=== PATIENT | male | born 1975 | race African-American/Black ===

== ENCOUNTER 2020-01-14 02:37 | Emergency (ER) | payer OTHER ==
[~2020-01-14] VITALS: Ht 180.3 cm; Wt 86.2 kg
--- NOTE | 2020-01-14 02:59 | NUR ---
PT AAOX4. AMBULATORY WITH STEADY GAIT. BIBSELF C/O SI TO JUMP INFRONT OF TRAFFIC, -HI. PLACED IN BED 14 ON MONITOR AND PULSE OX. BELONGINGS PALCED IN LOCKER. SITTER AT BEDSIDE. NO ACUTE DISTRESS NOTED.
[2020-01-14 04:16] LABS: APPEARANCE,URINE CLEAR (CLEAR); BILIRUBIN,URINE NEGATIVE (NEGATIVE); BLOOD, URINE NEGATIVE Ery/uL (NEGATIVE); COLOR,URINE YELLOW (YELLOW); KETONES,URINE NEGATIVE (NEGATIVE); LEUKOCYTE ESTERASE ,URINE NEGATIVE (NEGATIVE); NITRITE, URINE NEGATIVE (NEGATIVE); PH,URINE 6.5 (5.0-8.0); PROTEIN,URINE NEGATIVE (NEGATIVE); UGLUCOSE NEGATIVE (NEGATIVE)
[2020-01-14 04:25] LABS: BACTERIA,URINE Few /HPF (None Seen); SQUAMOUS EPITHELIAL CELL,UR Rare /HPF (None Seen)
[2020-01-14 04:42] LABS: BASOPHILS # (AUTO) 0.1 /CMM (0.0-0.2); BASOPHILS % (AUTO) 0.9 % (0.0-2.0); EOSINOPHILS % (AUTO) 1.8 % (0.0-6.0); HEMATOCRIT 46 % (39-51); HEMOGLOBIN 14.4 g/dL (13.5-17.5); LYMPHOCYTES # (AUTO) 2.2 /CMM (0.8-4.8); LYMPHOCYTES % (AUTO) 22.5 % (20.0-44.0); MEAN CORPUSCULAR HGB CONC 32 g/dl (31.0-36.0); MEAN CORPUSCULAR VOLUME 95 fL (80-96); MONOCYTES # (AUTO) 0.7 /CMM (0.1-1.30); MONOCYTES % (AUTO) 7.2 % (2.0-12.0); NEUTROPHILS # (AUTO) 6.6 /CMM (1.8-8.9); NEUTROPHILS % (AUTO) 67.6 % (43.0-81.0); PLATELET COUNT (AUTO) 263 /CMM (150-450); RED BLOOD CELL COUNT(AUTO) 4.79 MIL/uL (4.5-6.0); WHITE BLOOD COUNT (AUTO) 9.8 K/uL (4.3-11.0)
[2020-01-14 05:06] LABS: ALANINE AMINOTRANSFERASE 32 U/L (12-78); ALBUMIN 4.2 g/dL (3.4-5.0); ALCOHOL, BLOOD < 3 mg/dL (0-0); ALKALINE PHOSPHATASE 64 U/L (46-116); ASPARTATE AMINOTRANSFERASE 24 U/L (15-37); BILIRUBIN,DIRECT 0.2 mg/dL (0.0-0.2); BILIRUBIN,TOTAL 0.9 mg/dL (0.2-1.0); CALCIUM, SERUM 9.7 mg/dL (8.5-10.1); CARBON DIOXIDE 31 mmol/L (21-32); CHLORIDE 104 mmol/L (98-107); CREATININE 1.3 mg/dL (0.6-1.3); GLUCOSE 86 mg/dL (74-106); POTASSIUM 4.5 mmol/L (3.5-5.1); SODIUM SERUM 139 mmol/L (136-145); TOTAL PROTEIN, SERUM 7.8 g/dL (6.4-8.2); UREA NITROGEN, BLOOD 24 mg/dL (7-18)
[2020-01-14 05:09] LABS: ACETAMINOPHEN 0 ug/ml (10-30); SALICYLATE 1.3 mg/dL (2.8-20.0)
--- NOTE | 2020-01-14 05:34 | NUR ---
CLINICAL INFORMATION FAXED TO [facility]
--- NOTE | 2020-01-14 07:05 | NUR ---
PT RESTING COMFORTABLY IN BED. VITAL SIGNS STABLE. SITTER AT BEDSIDE, WILL CONTINUE TO MONITOR
[2020-01-14 07:06] VITALS: BP 128/75
--- NOTE | 2020-01-14 07:59 | NUR ---
Resting comfortably in bed,breakfast tray ordered, 1:1 sitter at bedside
--- NOTE | 2020-01-14 09:16 | NUR ---
CALLED [employer]NATIONAL PROJECT MANAGER FOR EVALUATION. WAS TOLD THEY WOULD ARRIVE AFTER MORNING MEETING
--- NOTE | 2020-01-14 11:59 | NUR ---
This SW met with the patient at bedside. Patient is a 44 year old male, alert, awake, and expressed awareness of being in the Emergency room and needing psychiatric care. Patient was receptive to meeting with social work. SW conducted this meeting in Khmer. Patient reported that he was brought into the ED due to having a suicidal plan to run in front of traffic. This SW confirmed patient's demographics on the facesheet. Patient reports living with mother who receives SSI approximately $900. Patient reports that he has been previously diagnosed with depression and is receiving medication through his primary care physician. Patient reports no history or drug/alcohol use. SW discussed inpatient psychiatric hospitalization with the patient. Patient expressed agreement. Patient thanked SW for her assistance. Patient was responsive with SW as he was laying in the bed while focusing on the floor. SW had to redirect patient to speak louder on occasion and to repeat himself for SW as his tone of voice was low. Patient was cooperative. SW to finding placement for the patient.
--- NOTE | 2020-01-14 13:04 | NUR ---
Service Desk Associate contacted Wayne at [facility] to verify eligibly for this patient to be transferred to one of their facilities. This SW faxed over the clinicals including facesheet, doctor's note stating he is medically cleared, and toxicology reports.
--- NOTE | 2020-01-14 13:07 | NUR ---
Quarry Supervisor was contacted by Wayne from [facility] stating that the patient had changed his [facility] from [facility] to [facility]. Wayne stated that [facility] will be able to accept the patient. This SW is awaiting confirmation details.
--- NOTE | 2020-01-14 14:16 | NUR ---
MELISSA FROM [facility] CALLED PATIENT ACCEPTED AT [facility] ACCEPTED BY DR MCKEON AND DR RASMUSSEN UNIT [address]
--- NOTE | 2020-01-14 14:34 | NUR ---
CALLED [facility] FOR [place] ETA OF 1500 WAS GIVEN.
--- NOTE | 2020-01-14 16:10 | NUR ---
This SW contacted Wayne from [facility] asked for an update on this patient as SW did not hear back for confirmation details. Henri from [facility] followed-up with BRIDGETT that the patient was accepted. Henri contacted the ED directly and spoke to DONAVAN Espinal directly.
== END 2020-01-14 15:21 ==
LOC: ER 02:42
DX: R45.851 Suicidal ideations (principal); F31.9 Bipolar disorder, unspecified; F20.9 Schizophrenia, unspecified
CPT/HCPCS: 36415; 80048; 80076; 80305; 80307; 80329; 81001; 85025; 87086; 99285; G0480; 81000-TC